=== PATIENT | male | born 1995 | race Two or more races ===

== ENCOUNTER 2017-02-11 18:13 | Emergency (ER) | payer OTHER ==
[~2017-02-11] VITALS: Ht 165.1 cm; Wt 81.6 kg
--- NOTE | 2017-02-11 18:13 | NUR ---
Patient was BIBA and taken to bed 03 via gurney per EMS.
--- NOTE | 2017-02-11 18:15 | NUR ---
21M BIBA FROM HOME C/O SEIZURE X 30 MINUTES PRIOR TO ARRIVAL TODAY; [facility] STATES PT WAS WATCHING A MOVIE, AND MOTHER WITNESSED GRAND MAL SEIZURE LASTING 1-2 MINUTES; MOTHER STATES PT HAS HX OF SEIZURES, TAKING LAMICTAL FOR SEZURES; PT DENIES ANY PAIN AT THIS TIME; MOTHER DENIES N/V/D AT THIS TIME; PER MOTHER, PT BLIND IN RT EYE, A&O, HX: INTELLECTUALLLY DISABLED; PT ABLE TO ANSWER SIMPLE QUESTIONS; BL LUNG SOUNDS CLEAR, RR EVEN/UNLABORED; PT NOTED W/ BROWNISH COLORATION TO FACE/BL ARMS; MOTHER STATES DISCOLORATION FROM ASHRAF AND HX EPIDERMAL MEVUS SYNDROME; PT RESTING IN BED W/ HOB ELEVATED AND IN LOWEST POSITION; POSITIONED FOR COMFORT; ER MD MADE AWARE OF STATUS. WILL CONTINUE TO MONITOR.
[2017-02-11 18:17] VITALS: BP 150/77
--- NOTE | 2017-02-11 19:13 | NUR ---
Pt report given to PHAM ECHAVARRIA. Transfer of care at this time.
--- NOTE | 2017-02-11 19:15 | NUR ---
CAME AT BEDSIDE TO EVALUATE PATIENT.
--- NOTE | 2017-02-11 19:20 | NUR ---
ASSUMED CARE. RECEIVED ALERT,NOT IN ACUTE DISTRESS. NO PAIN OR DISCOMFORT NOTED. NO SEIZURE ACTIVITY. NOTED. PARENTS AT BEDSIDE. VS STABLE, WILL CONTINUE TO MONITOR.
--- NOTE | 2017-02-11 20:11 | NUR ---
LAMICTAL 200 MG PO GIVEN ORDERED.
--- NOTE | 2017-02-11 20:23 | NUR ---
DISCHARGED STABLE. AFTERCARE INSTRUCTIONS GIVEN TO PATIENT AND PARENTS. VERBALIZED UNDERSTANDING.
[2017-02-11 20:37] VITALS: BP 135/68
== END 2017-02-11 20:23 | disposition home or self-care (01) ==
LOC: MED 18:13
DX: G40.409 Other generalized epilepsy and epileptic syndromes, not intractable, without status epilepticus (principal); D23.9 Other benign neoplasm of skin, unspecified; F79 Unspecified intellectual disabilities

== ENCOUNTER 2019-11-21 20:08 | Emergency (ER) | payer OTHER ==
[~2019-11-21] VITALS: Ht 149.9 cm; Wt 74.8 kg
[2019-11-21 20:08] VITALS: BP 138/78
--- NOTE | 2019-11-21 20:12 | NUR ---
BIBA TO BED 10
--- NOTE | 2019-11-21 20:15 | NUR ---
MOTHER AND FATHER AT BEDSIDE.
--- NOTE | 2019-11-21 20:15 | NUR ---
PT 24 Y/O MALE BIBA BLS FOR LAC TO FOREHEAD ON R SIDE. PER PARENTS LAC MAY BE CAUSED FROM A SEIZURE BUT IT WAS NOT WITNESSED. LAC IS APPROXIMATELY 3 IN IN LENGTH. NO BLEEDING NOTED AT THIS TIME. SWELLING NOTED. PT RESPIRTATIONS ARE EVEN AND UNLABORED SKIN IS WARM AND DRY TO TOUCH. AFEBRILE. DENIES N/V/D. DENIES COUGH. SEIZURE PRECAUTIONS IN PLACE.
[2019-11-21] MEDS ORDERED: LIDOCAINE/EPI 1% 1:100000 20 ML VIAL INJ ONE (20:20)
--- NOTE | 2019-11-21 20:43 | NUR ---
LAB AT BEDSIDE.
--- NOTE | 2019-11-21 20:46 | NUR ---
[employer]EC[employer] DIRECTOR AT BEDSIDE
[2019-11-21 20:59] LABS: BASOPHILS # (AUTO) 0.1 K/uL (0.00-0.22); BASOPHILS % (AUTO) 0.7 % (0.0-2.0); EOSINOPHILS # (AUTO) 0.4 K/uL (0-0.4); EOSINOPHILS % (AUTO) 5.1 % (0.0-4.0); HEMATOCRIT 48.3 % (36-52); LYMPHOCYTES # (AUTO) 2.6 K/uL (2.0-11.5); LYMPHOCYTES % (AUTO) 34.1 % (20.5-51.1); MEAN CORPUSCULAR HEMOGLOBIN 33 pg (27-31); MEAN CORPUSCULAR HGB CONC 35 g/dL (33-37); MEAN CORPUSCULAR VOLUME 92.4 fL (80-94); MONOCYTES # (AUTO) 0.5 K/uL (0.8-1.0); MONOCYTES % (AUTO) 5.9 % (1.7-9.3); NEUTROPHILS # (AUTO) 4.2 K/uL (1.8-7.7); NEUTROPHILS % (AUTO) 54.2 % (42.2-75.2); PLATELET COUNT (AUTO) 303 K/uL (140-450); RED BLOOD CELL COUNT(AUTO) 5.23 MIL/uL (4.20-6.10); RED CELL DISTRIBUTION WIDTH 12.6 % (11.6-13.7); WHITE BLOOD COUNT (AUTO) 7.7 K/uL (4.8-10.8)
[2019-11-21] MEDS ORDERED: IBUPROFEN 600 MG TAB PO ONE (21:20)
[2019-11-21 21:31] LABS: ANION GAP 12.8 (8-16); CARBON DIOXIDE 29.2 mmol/L (21-32); CREATININE 0.7 mg/dL (0.6-1.3)
[2019-11-21] MEDS ORDERED: BACITRACIN OINT 500 UNITS/GM PKT TP ONE (21:40)
[2019-11-21 21:55] VITALS: BP 141/79
--- NOTE | 2019-11-21 21:55 | NUR ---
Patient discharged with v/s stable. Written and verbal after care instructions given and explained. Patient verbalized understanding. Ambulatory with steady gait. All questions addressed prior to discharge. Advised to follow up with PMD.
== END 2019-11-21 21:55 | disposition home or self-care (01) ==
LOC: MED 20:08
DX: S01.81XA Laceration without foreign body of other part of head, initial encounter (principal); R56.9 Unspecified convulsions; W19.XXXA Unspecified fall, initial encounter; Y93.89 Activity, other specified; Y92.89 Other specified places as the place of occurrence of the external cause; Y99.8 Other external cause status
CPT/HCPCS: 12011; 36415; 80048; 85025; 99283; J2001